=== PATIENT | female | born 1990 | race Hispanic/Latino ===

== ENCOUNTER 2023-01-20 16:40 | Emergency (ER) | payer BC ==
--- OUTSIDE RECORDS SUMMARY | 2023-01-20 16:42 | XMS REPORT | Continuity of Care Document ---
Author Name Unknown Address [address] [place] [address] [address] thconnect Address [address] [facility] 1 [address] [place] [address] Care Team Providers Care Watershed Manager Name Role Phone [phone] Primary Care Physician Unavailab HAMIDA Caballero Attending Clinician Unavailable SYSTEM, PROVIDER NOT IN Attending Clinician Unav ailable DK GONZALEZ Attending Clinician Unavailable OLIVERIO STEWART Attending Clinician Unavailable CHAO GARCIA Attending Clinician Unavailable LUIGI MATTA Attending Clinician UnavailHAMIDA Marx Admitting Clinician Unavailable Payers Payer Name Policy Type Policy Number Effective Date Expirati on Date Source [place]CH[place] PLAN [id number] 2020 00:00:00 [place] [id number] 2022 00:00:00 Medications Ordered Medication Name Filled Medication Name Start Date Stop Date Current Medication? Ordering Clinician Indication Dosage Frequency Signature (SIG) Comments Components Source SYNTHROID 0.175MG (175MCG) TABLETS 11-01 00:00: 00 No Vital Signs Vital Name Observation Time Observation Value Comments S ource WEIGHT 2020-07-05 08:39:38 72.8 kg HEIGHT 2020-06-06 08:55:00 165 cm WEIGHT 2020-06-06 08:55:00 72.2 kg Respiratory Rate 2021-11-02 12:19:00 BP Systolic 2021-11-02 12:19:00 112 mm[Hg] BP Diastolic 2021-11-02 12:19:00 77 mm[Hg] Weight Measured 2021-11-02 12:19:00 167.60 pounds Height Measured 2021-11-02 12:19:00 65.35 inches Body Temperature 2021-11-02 12:19:00 98.30 degrees Heart Rate 2021-11-02 12:19:00 92.00 /min Plan of Care Planned Activity Planned Date Details Comments Source Goal Plan of Care Note [code = 46131-8] Goal Plan of Care Note [code = 58915-5] Goal Plan of Care Note [code = 83351-1] Goal Plan of Care Note [code = 48220-4] Encounters Start Date/Time End Date/Time Encounter Type Admission Type Attending [facility] Care Department Encounter ID Source 2020-07-06 12:28:07 Outpatient HAMIDA SCHERER [facility] [id number] MD Antonieta sanchez 2020-05-03 14:47:11 Outpatient SYSTEM, PROVIDER JAMES RAMIREZ [id number] MD Antonieta sanchez 2019-12-01 13:07:18 Outpatient SYSTEM, PROVIDER JAMES RAMIREZ [id number] MD Antonieta sanchez 2023-01-06 09:01:40 2023-01-06 23:59:00 Outpatient EL DK GONZALEZ MDA MDA [id number] MD Antonieta sanchez 2023-01-06 11:26:43 2023-01-06 12:55:09 Outpatient EL DK GONZALEZ MDA MDA [id number] MD Antonieta sanchez 2023-01-06 09:25:00 2023-01-06 09:25:00 Outpatient DK MARTINO MDA MDA [id number] MD Antonieta sanchez 2022-07-02 08:16:38 2022-07-02 08:16:38 Outpatient EL OLIVERIO STEWART MDA MDA [id number] MD Antonieta sanchez 2022-06-16 13:40:00 2022-06-17 14:13:00 Outpatient EL HAMIDA SCHERER MDA Mariano Endo [id number] MD Antonieta sanchez 2022-06-14 13:09:35 2022-06-14 23:59:00 Outpatient EL OLIVERIO STEWART MDA MDA [id number] MD Antonieta sanchez 2022-06-13 09:14:31 2022-06-13 09:14:31 Outpatient OLIVERIO CHU MDA MDA [id number] MD Antonieta sanchez 2022-06-03 13:13:43 2022-06-03 13:13:[address] [facility] [id number] Angelo Keyes 2022-05-23 07:13:03 2022-05-23 07:13:03 Outpatient CHAO CONCEPCION MDA MDA [id number] MD Antonieta sanchez 2022-05-22 08:45:23 2022-05-22 23:59:00 Outpatient CHAO CONCEPCION MDA MDA [id number] MD Antonieta sanchez 2022-05-22 09:57:05 2022-05-22 11:52:07 Outpatient MARLIN NIESHA HAMIDA MDA MDA [id number] MD Antonieta sanchez 2022-05-22 06:58:39 2022-05-22 06:58:39 Outpatient OLIVERIO CHU MDA MDA [id number] MD Antonieta sanchez 2022-02-19 15:02:47 2022-02-19 15:02:47 Outpatient [facility] [id number] Angelo Keyes 2021-11-02 00:00:00 2021-11-02 00:00:00 Outpatient Visit [id number] 2021-09-10 07:45:00 2021-09-10 23:59:00 Outpatient DK MARTINO MDA MDA [id number] MD Antonieta sanchez 2021-09-10 11:47:28 2021-09-10 14:05:25 Outpatient DK MARTINO MDA MDA [id number] MD Antonieta snachez 2021-09-10 09:49:22 2021-09-10 09:49:22 Outpatient DK MARTINO MDA MDA [id number] MD Antonieta sanchez 2021-09-10 08:34:21 2021-09-10 08:34:21 Outpatient DK MARTINO MDA MDA [id number] MD Antonieta sanchez 2020-07-31 11:43:08 2020-07-31 23:59:00 Outpatient OLIVERIO CHU MDA MDA [id number] MD Antonieta sanchez 2020-07-30 10:30:00 2020-07-30 23:59:00 Outpatient MARLIN OLIVERIO STEWART MDA MDA [id number] MD Antonieta sanchez 2020-07-29 08:43:30 2020-07-29 09:03:56 Outpatient EL OLIVERIO STEWART MDA MDA [id number] MD Antonieta sanchez 2020-07-05 08:34:45 2020-07-05 11:16:06 Outpatient MARLIN HAMIDA SCHERER MDA MDA [id number] MD Antonieta sanchez 2020-07-05 06:00:59 2020-07-05 06:00:59 Outpatient MARLIN STEWARTOLIVERIO MDA MDA [id number] MD Antonieta sanchez 2020-06-06 06:30:00 2020-06-06 23:59:00 Outpatient LUIGI CARTER MDA MDA [id number] MD Antonieta sanchez 2020-06-06 08:35:11 2020-06-06 09:54:13 Outpatient DK MARTINO MDA MDA [id number] MD Antonieta sanchez 2020-06-06 07:08:44 2020-06-06 07:08:44 Outpatient LUIGI CARTER MDA MDA [id number] MD Antonieta sanchez
[2023-01-20 17:43] LABS: Hematocrit 36.7 % (36.0-45.0); MCV 84.5 fL (80-100); MPV 10.4 fL (7.6-11.3); Platelets 275 thou/uL (152-406); RBC Red Blood Cell Count 4.34 M/uL (3.86-4.86)
[2023-01-20 17:45] LABS: Potassium 3.4 mEq/L (3.5-5.1)
[2023-01-20 18:11] LABS: Specific Gravity 1.019 (1.005-1.030)
[2023-01-20 18:22] LABS: Specific Gravity 1.019 (1.005-1.030); Urine Bacteria None Seen /HPF (<20); Urine Bilirubin NEGATIVE (Negative); Urine Blood 1+ (Negative); Urine Clarity Clear (Clear); Urine Color Light-Yellow (Yellow); Urine Glucose NEGATIVE (Negative); Urine Protein NEGATIVE (Negative); Urine RBC <5 /HPF (None Seen); Urine Urobilinogen Normal (Normal)
--- NOTE | 2023-01-20 18:29 | RAD REPORT ---
EXAM DESCRIPTION: US - Transvaginal OB - 01/20/2023 5:23 pm CLINICAL HISTORY: Abd cramping, ;Vaginal bleeding COMPARISON: No comparisons TECHNIQUE: Sonographic grayscale and color flow images of a first-trimester were obtained through transvaginal approach. FINDINGS: A single live intrauterine is identified. [place]-Carmen-rump length measures 17.8 millimeters, corresponding to gestational age of 8 weeks, 2 days. heart rate: 181 BPM Normal yolk sac is visualized. Maternal ovaries are not discretely visualized. No free fluid. IMPRESSION: 1. Single live intrauterine . 2. Calculated gestational age: 8 weeks, 2 days. Estimated due date by ultrasound: 08/30/2023.
--- NOTE | 2023-01-20 18:31 | EDPHYS ---
Physician Documentation [facility] Name: Emily Polo Age: 32 yrs Sex: Female : 1990 Arrival Date: 01/20/2023 Time: 16:40 Bed 13 Private MD: ED Physician Kerwin Cullen HPI: 01/20 16:47 This 32 yrs old Female presents to ER via Unassigned with complaints of kb Vaginal Bleeding, + Preg <12wks. 16:47 Patient is a 32-year-old female who presents for vaginal bleeding. States she is kb currently , LMP 11/25/2022. G3, P2, A0. States she had some spotting 2 days ago and today had a little bit more bleeding so she was wanting to make sure thing was okay. Denies any abdominal pain.. Historical: - Allergies: 16:52 No Known Allergies; tl4 - PMHx: 16:51 thyroid cancer; tl4 - Immunization history:: Adult Immunizations unknown. - Social history:: Smoking status: Patient denies any tobacco usage or history of. ROS: 18:24 Constitutional: Negative for fever, chills, and weight loss, kb 18:24 : Positive for vaginal bleeding, 18:24 All other systems are negative, Exam: 18:24 Constitutional: This is a well developed, well nourished patient who is awake, alert, kb and in no acute distress. Head/Face: Normocephalic, atraumatic. ENT: Moist Mucous membranes Cardiovascular: Regular rate Respiratory: Respirations even and unlabored. No increased work of breathing. Talking in full sentences Abdomen/GI: Soft, non-tender. No distention Skin: Warm, dry with normal turgor. Normal color. MS/ Extremity: Pulses equal, no cyanosis. Neurovascular intact. Full, normal range of motion. Neuro: Awake and alert, GCS 15, oriented to person, place, time, and situation. Moves all extremities. Normal gait. Vital Signs: 16:52 BP 131 / 76; Pulse 97; Resp 16; Temp 98.7; Pulse Ox 100% ; Weight 73.48 kg; Height 5 tl4 ft. 5 in. ; Pain 0/10; 17:55 BP 113 / 76; Pulse 89; Resp 16; Pulse Ox 99% on R/A; db 18:25 BP 104 / 71; Pulse 79; Resp 16; Pulse Ox 99% on R/A; db 16:52 Body Mass Index 26.96 (73.48 kg, 165.1 cm) tl4 16:52 Pain Scale: Adult tl4 MDM: 16:43 Patient medically screened. kb 18:24 Differential diagnosis: threatened Ab, complete Ab, ectopic . Data reviewed: kb vital signs, nurses notes. Counseling: I had a detailed discussion with the patient and/or guardian regarding the historical points, exam findings, and any diagnostic results supporting the discharge/admit diagnosis, lab results, radiology results, the need for outpatient follow up, an OB/Gyne specialist, to return to the emergency department if symptoms worsen or persist or if there are any questions or concerns that arise at home. 01/20 16:44 Order name: Abo/rh Typing; Complete Time: 17:55 kb 01/20 16:44 Order name: Basic Metabolic Panel; Complete Time: 17:55 kb 01/20 16:44 Order name: CBC with Diff; Complete Time: 17:55 kb 01/20 16:44 Order name: Test, Urine; Complete Time: 18:23 kb 01/20 16:44 Order name: Quantitative Hcg; Complete Time: 17:55 kb 01/20 16:44 Order name: Urinalysis w/ reflexes; Complete Time: 18:23 kb 01/20 16:44 Order name: US Transvaginal Ob; Complete Time: 18:31 kb 01/20 16:44 Order name: IV Saline Lock; Complete Time: 17:06 kb 01/20 16:44 Order name: Labs collected and sent; Complete Time: 17:06 kb 01/20 16:44 Order name: NPO; Complete Time: 17:06 kb Administered Medications: No medications were administered Disposition: 19:13 Co-signature as Attending Physician, Kerwin Cullen MD I reviewed the patient's care rn provided by the Advanced Practice Provider and agree with the diagnosis and treatment plan. Disposition Summary: 01/20/23 18:31 Discharge Ordered Notes: Location: Home kb Condition: Stable kb Diagnosis - Threatened kb Followup: kb - With: Emergency Department - When: As needed - Reason: Worsening of condition Followup: kb - With: Private Physician - When: 2 - 3 days - Reason: Recheck today's complaints, Continuance of care, Re-evaluation by your physician Discharge Instructions: - Discharge Summary Sheet kb - Threatened Miscarriage, [id number] kb - Vaginal Bleeding During , First Trimester, [id number] kb Forms: - Medication Reconciliation Form kb - Thank You Letter kb - Antibiotic Education kb - Prescription Opioid Use kb - Patient Portal Instructions kb - Leadership Thank You Letter kb Signatures: Dispatcher [employer] Miryam Adams, SENIOR LEAD JAVA DEVELOPER-C SENIOR LEAD JAVA DEVELOPER-Kerwin Glez MD MD rn HunterJoseph de la rosa 4
--- NOTE | 2023-01-20 18:31 | ER ---
Nurse's Notes [facility] Name: Emily Polo Age: 32 yrs Sex: Female : 1990 Arrival Date: 01/20/2023 Time: 16:40 Bed 13 Private MD: Diagnosis: Threatened Presentation: 01/20 16:47 Chief complaint: Patient states: Pt c/o vaginal bleeding after wiping. Pt denies tl4 bleeding onto a pad. Pt c/o intermittent bilateral side pain, nausea. Pt has not been evaluated by OB yet, has an appt next week. 16:47 Method Of Arrival: Ambulatory tl4 16:52 Coronavirus screen: Vaccine status: Patient reports being unvaccinated. At this time, tl4 the client does not indicate any symptoms associated with coronavirus-19. Ebola Screen: Patient negative for fever greater than or equal to 101.5 degrees Fahrenheit, and additional compatible Ebola Virus Disease symptoms Patient denies exposure to infectious person. Patient denies travel to an Ebola-affected area in the 21 days before illness onset. No symptoms or risks identified at this time. Initial Sepsis Screen: Does the patient meet any 2 criteria? No. Patient's initial sepsis screen is negative. Does the patient have a suspected source of infection? No. Patient's initial sepsis screen is negative. Risk Assessment: Do you want to hurt yourself or someone else? Patient reports no desire to harm self or others. Onset of symptoms was January 19, 2023. 16:52 Acuity: MALORIE 3 tl4 Historical: - Allergies: 16:52 No Known Allergies; tl4 - PMHx: 16:51 thyroid cancer; tl4 - Immunization history:: Adult Immunizations unknown. - Social history:: Smoking status: Patient denies any tobacco usage or history of. Screenin:04 [facility] ED Fall Risk Assessment (Adult) History of falling in the last 3 months, db including since admission No falls in past 3 months (0 pts) Confusion or Disorientation No (0 pts) Intoxicated or Sedated No (0 pts) Impaired Gait No (0 pts) Mobility Assist Device Used No (0 pt) Altered Elimination No (0 pt) Score/Fall Risk Level 0 - 2 = Low Risk Oriented to surroundings, Maintained a safe environment. Abuse screen: Denies threats or abuse. Denies injuries from another. Nutritional screening: No deficits noted. Tuberculosis screening: No symptoms or risk factors identified. Assessment: 18:01 Obstetrical Assessment: General assessment: awake and alert, skin warm and dry. db Reassessment: Patient appears in no apparent distress at this time. Patient and/or family updated on plan of care and expected duration. Pain level reassessed. Patient is alert, oriented x 3, equal unlabored respirations, skin warm/dry/pink. General: Appears in no apparent distress. comfortable, Behavior is calm, cooperative. Neuro: Level of Consciousness is awake, alert, obeys commands, Oriented to person, place, time, situation. Respiratory: Airway is patent Respiratory effort is even, unlabored, Respiratory pattern is regular, symmetrical. : Urine is clear, Reports vaginal bleeding that is. 18:05 Pain: Denies pain. db 18:38 Reassessment: Patient appears in no apparent distress at this time. Patient and/or db family updated on plan of care and expected duration. Pain level reassessed. Patient is alert, oriented x 3, equal unlabored respirations, skin warm/dry/pink. Vital Signs: 16:52 BP 131 / 76; Pulse 97; Resp 16; Temp 98.7; Pulse Ox 100% ; Weight 73.48 kg; Height 5 tl4 ft. 5 in. ; Pain 0/10; 17:55 BP 113 / 76; Pulse 89; Resp 16; Pulse Ox 99% on R/A; db 18:25 BP 104 / 71; Pulse 79; Resp 16; Pulse Ox 99% on R/A; db 16:52 Body Mass Index 26.96 (73.48 kg, 165.1 cm) tl4 16:52 Pain Scale: Adult tl4 Vitals: 18:39 Heart Tones UNABLE TO ASSESS. . db ED Course: 16:43 Patient arrived in ED. im 16:43 Miryam Waller [facility]-C [facility] kb 16:43 Kerwin Cullen MD is Attending Physician. kb 16:53 Triage completed. tl4 16:53 Arm band placed on Patient placed in an exam room, on a stretcher. EKG completed in tl4 triage. Results shown to MD. 17:06 Abo/rh Typing Sent. cm10 17:06 Basic Metabolic Panel Sent. cm10 17:06 CBC with Diff Sent. cm10 17:06 Quantitative Hcg Sent. cm10 17:06 Initial lab(s) drawn, by me, sent to lab. Inserted saline lock: 20 gauge in right cm10 antecubital area, using aseptic technique. Blood collected. 17:25 US Transvaginal Ob In Process Unspecified. EDMS 18:01 Elma Judd, RN is Primary Nurse. db 18:04 Patient has correct armband on for positive identification. Bed in low position. Call db light in reach. Side rails up X 1. Pulse ox on. NIBP on. 18:25 Provided Education on: DISCHARGE. db 18:25 No provider procedures requiring assistance completed. IV discontinued, intact, db bleeding controlled, No redness/swelling at site. Administered Medications: No medications were administered Medication: 18:05 VIS not applicable for this client. db Outcome: 18:25 Discharged to home ambulatory, with significant other, db 18:25 Condition: stable 18:25 Discharge instructions given to patient, Instructed on discharge instructions, follow up and referral plans. 18:31 Discharge ordered by . kb 18:40 Patient left the ED. db Signatures: Dispatcher [employer] EDNY Miryam Waller, COIL CONNECTOR-C COIL CONNECTOR-Ckb Elma Judd, RN RN Ryann Urbano Clarissa RN RN cm10 [place], Joseph tl4 Corrections: (The following items were deleted from the chart) 18:05 18:01 Reassessment: Patient appears in no apparent distress at this time. Patient db and/or family updated on plan of care and expected duration. Pain level reassessed. Patient is alert, oriented x 3, equal unlabored respirations, skin warm/dry/pink. db
[2023-01-20 19:36] VITALS: TEMP 98.7
[2023-01-20 19:41] VITALS: BP 104/71; O2SAT 99
== END 2023-01-20 18:40 | disposition home or self-care (01) ==
LOC: ER 16:40
DX: O20.0 Threatened abortion (principal); Z3A.08 8 weeks gestation of pregnancy
CPT/HCPCS: 36415; 76817; 80048; 81001; 81025; 84702; 85025; 86900; 86901; 99284